=== PATIENT | female | born 1985 | race American Indian/Alaskan Native ===

== ENCOUNTER 2018-02-22 23:35 | Emergency (ER) | payer SELFPAY ==
[2018-02-22 23:54] VITALS: BP 129/91
== END 2018-02-23 | disposition left against medical advice (07) ==
LOC: ED 23:35
DX: R45.851 Suicidal ideations (principal); Z53.21 Procedure and treatment not carried out due to patient leaving prior to being seen by health care provider

== ENCOUNTER 2018-02-23 10:45 | Emergency (ER) | payer MEDICAID ==
[2018-02-23 11:21] VITALS: BP 130/94
== END 2018-02-23 13:00 | disposition left against medical advice (07) ==
LOC: ED 10:45
DX: Z00.00 Encounter for general adult medical examination without abnormal findings (principal); Z53.21 Procedure and treatment not carried out due to patient leaving prior to being seen by health care provider